=== PATIENT | female | born 1990 | race Caucasian/White ===

== ENCOUNTER 2016-03-10 13:22 | Emergency (ER) | payer OTHER ==
[~2016-03-10] VITALS: Ht 162.6 cm; Wt 53.6 kg
[2016-03-10 13:13] VITALS: BP 128/71; PULSE 125; RESP 22; O2SAT 100
--- NOTE | 2016-03-10 13:22 | ED.REPORT ---
HPI-Dizziness / Weakness Date of Service Mar 10, 2016 ED Provider: Siri Crain History of Present Illness: became dizzy while doing a rope work out today. ate 3 pop tarts this am urinate 3 times today. primary care is [facility]. hx of happening once before. Usually exercises at least an hour a day. Nursing Notes Stated Complaint: SUDDEN DIZZINESS Chief Complaint: Respiratory Complaints Nursing Notes Reviewed: Yes Allergies: Coded Allergies: No Known Allergies (Unverified , 03/10/16) General Time Seen by MD: 13:21 Chief Complaint Dizzy Hx Obtained From: Patient Onset Occurred: Just prior to arrival Context of Onset: With heavy exertion Past Medical History Past Medical History Denies: Asthma, Diabetes mellitus Past Surgical History Reports: Smoking History Never Smoker Social History Alcohol Use: Denies alcohol use Drug Use: Denies drug use Other Social History: Lives with parents Occupation and son who is 2.5. 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 Ambulatory Status Independent Review of Systems Basic Review of Systems : No dysuria, No frequency Musculoskeletal: No extremity swelling, No extremity pain, Full range of motion , Joints NL Allergy / Immune: No allergy Physical Exam Initial Vital Signs Vital Signs (First) Date Time Temp Pulse Resp B/P Pulse Ox O2 Delivery O2 Flow Rate FiO2 03/10/16 13:13 37.1 125 22 128/71 100 Room Air Initial VS: Reviewed, Vital signs abnormal ENT: Mucous membranes moist, Conjunctiva normal, No scleral icterus Neck: Supple, Non-tender, Full range of motion Abdomen / GI: Soft, Non-tender, No guarding, No rebound, No distention Back: No CVA tenderness Lymphatic: No lymphadenopathy Extremities: Vascular intact, Neuro intact, No swelling, No tenderness Skin: Warm, Dry, No cyanosis Psychiatric: Mood/affect normal, Behavior normal, Normal thought content General/Constitutional: Awake, Alert, No acute distress, Well appearing, Well developed, Well hydrated, Well nourished, Cooperative, Not toxic appearing Head / Eyes: Atraumatic, Normocephalic, PERRL, EOMI Respiratory / Chest: Atraumatic, Breath sounds NL, Breath sounds = bilat, No respiratory distress Cardiovascular: Heart rate NL, Regular rhythm, Heart sounds NL, No gallop Neurologic: Oriented X3, Speech NL, No motor deficits, No sensory deficits, CN II - XII intact, Reflexes equal bilat ENT: Atraumatic, Airway patent, Mucous membranes moist, Pharynx NL, No peritonsillar abscess Interpretation & Diagnostics Lab Results Interpretation Result Diagram: 03/10/16 1340 03/10/16 1340 Test 03/10/16 13:40 03/10/16 14:30 White Blood Count 8.8th/mm3 (3.8-10.1) Red Blood Count 4.50mil/mm3 (3.90-5.20) Hemoglobin 13.8g/dL (12.0-15.6) Hematocrit 39.7% (35.0-46.0) Mean Corpuscular Volume 88.2fL (81-100) Mean Corpuscular Hemoglobin 30.7pg (27.0-35.0) Mean Corpuscular Hemoglobin Concent 34.8% (32.0-37.0) Red Cell Distribution Width 12.4% (12.3-15.4) Platelet Count 189bil/L (150-400) Neutrophils (%) (Auto) 79.7% (40-74) Lymphocytes (%) (Auto) 10.4% (14-46) Monocytes (%) (Auto) 9.0% (4-12) Eosinophils (%) (Auto) 0.2% (0-5) Basophils (%) (Auto) 0.5% (0-3) Sodium Level 140mEq/L (134-144) Potassium Level 3.9mEq/L (3.5-5.2) Chloride Level 103mEq/L (97-108) Carbon Dioxide Level 22mmol/L (18-29) Blood Urea Nitrogen 10mg/dL (6-20) Creatinine 0.68mg/dL (0.57-1.00) Estimat Glomerular Filtration Rate 154mL/min (>59) Glucose Level 98mg/dL (60-99) Calcium Level 9.2mg/dL (8.5-10.1) Total Bilirubin 0.7mg/dL (0.0-1.2) Aspartate Amino Transf (AST/SGOT) 13U/L (0-50) Alanine Aminotransferase (ALT/SGPT) 8U/L (0-32) Alkaline Phosphatase 41U/L (25-150) Total Protein 7.2g/dL (6.4-8.4) Albumin 4.4g/dL (3.4-5.0) Hold Funes Top Tube Received (Received) Hold Urine Received (Received) Lab Results Interpretation: Urine with large ketones and SG at 1.030 Re-Eval/Medical Decision Med Decision/Clinical Course patient reporting feeing better after a liter of fluid and a dose of visteral. Discussed need to increase oral intake Patient Discharge & Departure Impression: Primary Impression: Syncope, near Additional Impression: Decreased oral intake Disposition: Home Patient Instructions: Healthy Snacks for Athletes (GEN), Shopping for a Healthy Diet (ED), Syncope (ED) Additional Instructions: You need to eat more!!!! Your urine shows a large amount of ketones. If you want to work out an hour a day, you need to eat more or you will have a near faint as you did today. Your labs are normal. Diet options are provided to help you make healthy choices. Referrals: [facility] EDSupervising Provider for APC: Yves Harris MD [facility] Siri Crain Mar 10, 2016 13:22
[2016-03-10] MEDS ORDERED: hydrOXYzine Pamoate 25 mg Capsule PO ONE (13:30)
[2016-03-10] MEDS ORDERED: 0.9% Sodium Chloride 1,000 ML IV ONE (13:30)
[2016-03-10 13:52] LABS: BASOPHILS % (AUTO) 0.5 % (0-3); EOSINOPHILS % (AUTO) 0.2 % (0-5); Mean Corpuscular Hemoglobin 30.7 pg (27.0-35.0); Mean Corpuscular Volume 88.2 fL (81-100); NEUTROPHILS % (AUTO) 79.7 % (40-74); Platelet Count 189 bil/L (150-400)
[2016-03-10 14:52] VITALS: BP 101/69; PULSE 89; RESP 16; O2SAT 98
[2016-03-10 15:13] VITALS: BP 107/67; PULSE 102; RESP 16; O2SAT 98
== END 2016-03-10 15:14 | disposition home or self-care (01) ==
LOC: SED 13:22 → EDBD 13:22 → SED 15:14
DX: R55 Syncope and collapse (principal); R63.8 Other symptoms and signs concerning food and fluid intake; X58.XXXA Exposure to other specified factors, initial encounter; Y93.B9 Activity, other involving muscle strengthening exercises; Y92.39 Other specified sports and athletic area as the place of occurrence of the external cause; Y99.8 Other external cause status
CPT/HCPCS: 36415; 80053; 81025; 85025; 93005; 96360; 99284; J7030; Q0177